=== PATIENT | female | born 1975 | race Caucasian/White ===

== ENCOUNTER → 2017-04-08 | Outpatient (CLI) | payer BC ==
[~2017-04-08] MED LIST: ALBUTEROL17 GM INH; HYDROCHLOROTHIA25 MG PO; HYDROCODON-ACE1 EAC9 PO; LISINOPRIL PO; PANTOPRAZOLE SO20 MG PO; PHENERGAN PO; PHENERGAN25 M1 DOB; PHENERGAN25 MG PO; PRENATAL MULITV1 TAB PO; PRENATAL1 TA1 PO; PROVERA10 MG PO; REGLAN10 MG PO; ULTRAM PO
--- NOTE | ~2017-04-08 | CT4 ---
[facility] A Service of [facility] RADIOLOGY TEXT RESULTS PATIENT: KEVON STEIN LOCATION: [facility] : 75 UNIT #: [id number] AGE: [address]: Corrie Walker MD SEX: F ORDER DR: [id number] [address] [address] [id number] O MR#: [id number] Acc #: [id number] NAME: KEVON STEIN : 1975 SEX: F STUDY DATE/TIME: 04/08/2017 14:53 UNIT: SCT ROOM: STUDY DESCRIPTION: CT Abd and Pelv Wo Cont Attending Physician: Corrie Walker M.D. Referring Physician: Corrie Walker M.D. Ordering Physician: Corrie Walker M.D. Primary Care Physician: Corrie Walker M.D. MEDICAL IMAGING REPORT This report is preliminary unless electronic signature is present. EXAM CT of the abdomen and pelvis without contrast INDICATION Right flank pain and blood in the urine since Friday. TECHNIQUE Axial CT images were obtained from the dome of the diaphragm through the symphysis pubis. No oral or intravenous contrast material was administered. This CT exam was performed with one or more of the following radiation dose reduction techniques: automatic exposure control, adjustment of mA and/or kV according to patient size, and iterative reconstruction. FINDINGS This patient has a 6.0 mm nodule identified within the right middle lobe. There are also scattered tree-in-bud infiltrates as well. An additional tiny nodule is seen within the left lower lobe measuring about 4.0 mm in size. There is diffuse hepatic steatosis. No renal stones are identified on either side. There is no hydronephrosis. Patient has diffuse hepatic steatosis, as well as cholelithiasis. Pancreas appears unremarkable as are the adrenal glands and spleen. There is no evidence of mechanical bowel obstruction. Patient's appendix is visualized and is within normal limits. Bilateral Essure devices are noted. No free fluid or adenopathy is seen within the pelvis. No suspicious adnexal masses are seen. Review of bony windows does not demonstrate any aggressive osseous abnormalities. IMPRESSION [facility] A Service of [facility] & [facility] RADIOLOGY TEXT RESULTS PATIENT: KEVON STEIN LOCATION: [facility] : 75 UNIT #: [id number] AGE: [address]: Corrie Walker MD SEX: F ORDER DR: 1. No renal stones are identified. There is no hydroureteronephrosis. No distal ureteral or bladder stones are seen. 2. The patient does have cholelithiasis and diffuse hepatic steatosis. 3. 6.0 mm nodule identified within the right middle lobe as well as a 4.0 mm nodule seen within the left lower lobe. These certainly could reflect benign noncalcified granulomata but I would suggest short-term CT followup in 6 months to document continuing stability. 4. The appendix is visualized and is within normal limits. Dictated by... Reyna Prajapati M.D. THIS IS AN ELECTRONICALLY VERIFIED REPORT Reyna Prajapati M.D. at 04/10/2017 3:39 PM JF/jw TD: 04/08/2017 21:17 JOB #: [id number] MEDICAL IMAGING REPORT Page 1 of 1
== END | disposition home or self-care (01) ==
LOC: SCT 14:15
DX: N20.0 Calculus of kidney (principal); K80.20 Calculus of gallbladder without cholecystitis without obstruction; K76.0 Fatty (change of) liver, not elsewhere classified; R91.8 Other nonspecific abnormal finding of lung field
CPT/HCPCS: 74176

== ENCOUNTER → 2017-04-18 | Day surgery (SDC) | payer BC ==
--- NOTE | ~2017-04-18 | OR ---
Unit #: [id number] #: [id number] Patient: KEVON STEIN [id number] [address] [address] [id number] O MR#: [id number] NAME: KEVON STEIN ROOM: Date of Procedure: 04/18/2017 Admission Date: 04/18/2017 Surgeon: Sharan Lewis III, M.D. : 1975 Attending Physician: Sharan Lewis III, M.D. Primary Care Physician: Corrie Walker M.D. OPERATIVE REPORT PREOPERATIVE DIAGNOSIS Symptomatic cholelithiasis. POSTOPERATIVE DIAGNOSIS Symptomatic cholelithiasis. SECONDARY DIAGNOSES Fatty liver and morbid obesity. PROCEDURE PERFORMED Laparoscopic cholecystectomy. COMPLICATIONS None apparent. ESTIMATED BLOOD LOSS Less than 100 mL. SPECIMEN Gallbladder to Pathology. ANESTHESIA General endotracheal tube anesthesia. INDICATIONS FOR PROCEDURE This is a 41-year-old lady, who is morbidly obese with a body mass index of 54, who has gallstones and biliary colic. She is here today for laparoscopic cholecystectomy. DESCRIPTION OF PROCEDURE After consent was obtained, the patient was brought to the operating room and placed in the supine position. General anesthetic was administered and her abdomen was prepped and draped in standard surgical fashion. I made a 5-mm incision in the right upper quadrant. I tried to use an Optiview to enter into peritoneal cavity without difficulty; however, she had enlarged liver and I did ortez the anterior border of the liver. I was unable to get this trocar positioned properly to where I could obtain CO2 pneumoperitoneum. I then came up with secondary plan, where I placed a 10 mm Visiport in the epigastric region. I then was able to obtain CO2 pneumoperitoneum safely. I then repositioned the trocar in the right upper quadrant. The bleeding had already subsided from the right liver lobe. I placed a 5-mm port in the right lateral subcostal region and a Unit #: [id number] #: [id number] Patient: KEVON STEIN 5-mm port above into the right of the umbilicus. Again, she had an enlarged liver that made the procedure more difficult. I was able to retract the gallbladder superiorly and laterally. I dissected out the cystic duct and cystic artery and after these were carefully identified, I placed two clips proximally and one clip distally along both structures and then they were divided. She also had a small posterior branch that was divided. As I has taken the gallbladder off the liver bed, there was a liver capsule that bled briskly. I turned the Bovie cautery up and cauterized this area for hemostasis. I then turned the Bovie back down and continued to take the gallbladder off the liver bed. I was able to extract the gallbladder through the epigastric port site without any major dilatation of the fascia. I irrigated and had good hemostasis and placed some Surgicel along the liver bed for security. The trocars were removed and I released the pneumoperitoneum. I then injected all the port sites with 0.25% plain Marcaine and I reapproximated the skin edges with interrupted 4-0 Vicryl subcuticular suture. Steri-Strips were then applied. The patient tolerated the procedure without any problems and returned to the recovery room in stable condition. Dictated by... Sharan Lewis III, M.D. VCL/alec TD: 04/18/2017 16:10 JOB #: [id number] CC: Corrie Walker M.D. OPERATIVE REPORT Page 1 of 1 X Sharan Lewis III, MD PROCEDURE OPERATIVE NOTE
--- NOTE | ~2017-04-18 | EKG ---
PATIENT: KEVON STEIN UNIT #: [id number] Ventricular Rate: 67 BPM Atrial Rate: 67 BPM P-R Interval: 164 ms QRS Duration: 90 ms Q-T Interval: 420 ms QTC Calculation(Bezet): 443 ms P [place]: 27 degrees Calculated R [place]: 14 degrees Calculated T [place]: 34 degrees Diagnosis Line: Normal sinus rhythm Diagnosis Line: Normal ECG Diagnosis Line: When compared with ECG of 01-JUL-2016 11:59, Diagnosis Line: No significant change was found Diagnosis Line: Confirmed by SHANNON CORONADO MD ([id number]) on Diagnosis Line: 04/18/2017 4:15:29 PM INTERPRETING MD: DAVE
[2017-04-18 07:47] LABS: BUN/CREATININE RATIO 12.5; CALCIUM SERUM 8.4 mg/dL (8.4-10.2); CREATININE SERUM 0.8 mg/dL (0.6-1.4); GLOM FILT RATE Estimated 91.7 mL/min (>60); POTASSIUM 4.2 mmol/L (3.5-5.1)
== END | disposition home or self-care (01) ==
LOC: CSUR 06:33
PROVIDERS: Surgery
PROC: 0FT44ZZ Resection of Gallbladder, Percutaneous Endoscopic Approach (ICD-10-PCS; principal; 2017-04-18 08:30)
DX: K80.10 Calculus of gallbladder with chronic cholecystitis without obstruction (principal); K76.0 Fatty (change of) liver, not elsewhere classified; E66.01 Morbid (severe) obesity due to excess calories; Z68.43 Body mass index [BMI] 50.0-59.9, adult; E03.9 Hypothyroidism, unspecified; I10 Essential (primary) hypertension; E78.5 Hyperlipidemia, unspecified; F41.8 Other specified anxiety disorders; M54.5 Low back pain; K62.5 Hemorrhage of anus and rectum; F17.200 Nicotine dependence, unspecified, uncomplicated; Z79.899 Other long term (current) drug therapy; Z87.898 Personal history of other specified conditions; Z98.51 Tubal ligation status; Z87.442 Personal history of urinary calculi; Z82.3 Family history of stroke; Z80.0 Family history of malignant neoplasm of digestive organs; Z83.3 Family history of diabetes mellitus; Z80.3 Family history of malignant neoplasm of breast; Z88.5 Allergy status to narcotic agent
CPT/HCPCS: 80048; 84703; 88304; 93005; J0131; J1644; J2250; J2405; J3010

== ENCOUNTER 2017-04-19 22:35 | Emergency (ER) | payer BC ==
--- NOTE | ~2017-04-19 | CT2 ---
[facility] A Service of [facility] & [facility] RADIOLOGY TEXT RESULTS PATIENT: KEVON STEIN LOCATION: [facility] : 75 UNIT #: [id number] AGE: [address]: Howard Verdugo MD SEX: F ORDER DR: [id number] [facility] [address] [place], [place] [address] [id number] MR#: [id number] Acc #: [id number] NAME: KEVON STEIN : 1975 SEX: F STUDY DATE/TIME: 04/20/2017 UNIT: [facility] ROOM: STUDY DESCRIPTION: CT Abd and Pelv W Cont Attending Physician: Howard Verdugo M.D. Ordering Physician: Howard Verdugo M.D. Primary Care Physician: Corrie Walker M.D. MEDICAL IMAGING REPORT This report is preliminary unless electronic signature is present EXAM Abdomen and pelvis CT 04/20 at 01:02 INDICATIONS Cholecystectomy yesterday. Upper abdominal pain with difficulty breathing. Nausea, vomiting and diarrhea today. TECHNIQUE Axial images were obtained through the abdomen and pelvis following IV contrast administration. Multiplanar reformats were obtained. Comparison made with 04/08/2017. The CT exam was performed with one or more of the following radiation dose reduction techniques: automatic exposure control, adjustment of mA and/or kV according to patient size, and iterative reconstruction. FINDINGS Abdomen: There is atelectasis in the lung bases. This obscures the previously described left lower lobe nodule. There has been interval cholecystectomy. There is some minimal fluid in the gallbladder fossa. Gas in the ventral abdominal wall is compatible with surgery yesterday. No biliary obstruction is seen. Fatty infiltration of the liver is present. Solid organs otherwise remain normal. There is some air in the right side epicardial fat above the diaphragm. Please correlate clinically for the significance of this finding. The unopacified GI tract is within normal limits. Pelvis: Again seen are bilateral Essure devices in the fallopian tubes. Solid pelvic organs are normal. Urinary bladder is normal. There is no free fluid. The unopacified GI tract is grossly normal. IMPRESSION [facility] A Service of [facility] & [facility] RADIOLOGY TEXT RESULTS PATIENT: KEVON STEIN LOCATION: [facility] : 75 UNIT #: [id number] AGE: [address]: Howard Verdugo MD SEX: F ORDER DR: 1. Recent cholecystectomy with a minimal amount of fluid in the cholecystectomy bed. No biliary obstruction. 2. There is gas in the abdominal wall and there is some free air in the upper abdomen consistent with cholecystectomy recently. Also noted is gas in the right epicardial fat pad above the diaphragm. This is of unknown clinical significance. 3. The unopacified GI tract is grossly normal. 4. Solid abdominal organs are within normal limits. Dictated by... Enzo Mcneill Jr., M.D. THIS IS AN ELECTRONICALLY VERIFIED REPORT Enzo Mcneill Jr., M.D. at 04/20/2017 9:24 PM PATRIC/jen TD: 04/20/2017 10:02 JOB #: [id number] MEDICAL IMAGING REPORT Page 1 of 1 COPY
[~2017-04-19 22:35] MED LIST changes: -ALBUTEROL17 GM INH; -HYDROCODON-ACE1 EAC9 PO; -PANTOPRAZOLE SO20 MG PO; -PHENERGAN25 MG PO; -REGLAN10 MG PO
[2017-04-19] MEDS ORDERED: PHENERGAN25 MG PO (22:39)
[2017-04-19] MEDS ORDERED: HYDROCODON-ACE1 EAC9 PO (22:39)
[2017-04-20 00:41] LABS: BASOPHIL# 0.1 X10e3 (0-0.3); BASOPHIL% 0.3 % (0-2.5); DIFF IND YES; EOSINOPHIL% 0.2 % (0.0-7.0); HEMATOCRIT 49.5 % (35.0-45.0); HEMOGLOBIN 16.4 gm/dL (12.0-16.0); LYMPHOCYTE# 1.7 X10e3 (1.0-3.5); MEAN CELL VOLUME 101.8 FL (83-96); MEAN CORPUSCULAR HEMOGLOBIN 33.6 PG (28-34); MEAN CORPUSCULAR HGB CONC 33.1 g/dL (30-36); MEAN PLATELET VOLUME 10.8 FL (6.5-11.5); MONOCYTE% 4.5 % (3.0-12.0); NEUTROPHIL# 18.6 X10e3 (1.5-7.1); PLATELET COUNT 184 X10e3 (140-420); RED BLOOD COUNT 4.86 X10e (3.90-5.30); RED CELL DISTRIBUTION WIDTH 14.1 % (11.0-15.5); WHITE BLOOD COUNT 21.4 X10e3 (4.0-10.5)
[2017-04-20 01:03] LABS: ALBUMIN SERUM 4.3 g/dL (3.5-5.0); BILIRUBIN, DIRECT 0.3 mg/dL (0.0-0.2); BILIRUBIN,INDIRECT 0.7 mg/dL (0.0-0.9); BUN/CREATININE RATIO 13.33; CALCIUM SERUM 8.8 mg/dL (8.4-10.2); CREATININE SERUM 0.9 mg/dL (0.6-1.4); GLOM FILT RATE Estimated 79.5 mL/min (>60); POTASSIUM 3.2 mmol/L (3.5-5.1); PROTEIN TOTAL SERUM 7.8 g/dL (6.0-8.3)
[2017-04-20 01:16] LABS: URINE SOURCE CLEAN CATCH
[2017-04-20 01:24] LABS: URINE APPEARANCE CLOUDY; URINE BLOOD 1+ (NEG); URINE COLOR DK YELLOW; URINE GLUCOSE NEG (NEG); URINE KETONE TRACE (NEG); URINE LEUKOCYTE ESTERASE TRACE (NEG); URINE NITRATE NEG (NEG); URINE PROTEIN 1+ (NEG); URINE SPECIFIC GRAVITY 1.033 (1.003-1.035)
[2017-04-20 01:30] LABS: CULTURE INDICATED? YES; URINE BACTERIA AUWI 1+ (NEGATIVE); URINE SQUAMOUS EPITHELIAL CELL MOD /[HPF]
[2017-04-20 01:41] LABS: URINE BILIRUBIN NEG (NEG)
[2017-04-20 01:46] LABS: PLATELET ESTIMATE DECREASED (NORMAL)
[2017-06-19] MEDS ORDERED: PANTOPRAZOLE SO20 MG PO (15:11)
[2017-06-19] MEDS ORDERED: ALBUTEROL17 GM INH (15:11)
[2017-06-19] MEDS ORDERED: REGLAN10 MG PO (15:12)
== END 2017-04-20 02:15 | disposition home or self-care (01) ==
LOC: CED 22:35
PROVIDERS: Emergency Medicine
DX: G89.18 Other acute postprocedural pain (principal); R10.9 Unspecified abdominal pain; R11.2 Nausea with vomiting, unspecified; I10 Essential (primary) hypertension; Z90.49 Acquired absence of other specified parts of digestive tract; F17.210 Nicotine dependence, cigarettes, uncomplicated; Z88.8 Allergy status to other drugs, medicaments and biological substances; Z88.5 Allergy status to narcotic agent
CPT/HCPCS: 36415; 51701; 74177; 80048; 80076; 81003; 82150; 83690; 85025; 87086; 96361; 96374; 96375; 99284; C9113; J1170; J2765; Q9967